=== PATIENT | female | born 1965 | race Caucasian/White ===

== ENCOUNTER 2016-09-16 06:38 | Inpatient (IN) | payer MEDICAID ==
[~2016-09-16] VITALS: Ht 157.5 cm; Wt 101.7 kg
--- NOTE | 2016-09-16 07:04 | NUR ---
PATIENT SEEN WITH COMPLAINT OF VAVINAL BLEEDING SINCE JULY. FAMILY REPORTS PATIENT HAS A RASH. DR BLACKMON AT THE BEDSIDE. PELVIC EXAM WAS DONE.
--- NOTE | 2016-09-16 07:18 | NUR ---
REPORT ENDORSED TO
--- NOTE | 2016-09-16 07:20 | NUR ---
RECEIVED REPORT FROM SHERRY RUIZ AND WILL ASSUME CARE OF PT. PT REPORTING VAGINAL BLEEDING SINCE JULY 2016. REPORTING HX OF UTERINE FIBROIDS AND BIOPSY COMPLETED IN JULY. INTERMITTENT VAGINAL BLEEDING USING APPX 1 PAD EVERY 20 MINTUES FOR THE PAST FEW WEEKS AND DIZZINESS WITH ADEN FOR THE PAST 8 DAYS. [place] [facility] [place] UTI WAS DX AND KEFLEX GIVEN HOWEVER SYMTPOMS NOT IMPROVEMENT. PT STATED BIOPSY RESULTS ARE SUPPOSED TO BE GIVEN TO HER ON September. PT IS A/O X4. BREATHING EVEN AND UNLABORED. LOWER ABD CRAMPING, WITH BURNING AND ITCHINESS IN THE VAGINAL AREA. PENDING PLAN OF CARE.
[2016-09-16 07:39] LABS: BASOPHIL % 0.3 % (0-2); PLATELET COUNT 273 x10^3mcL (130-400); RED CELL DISTRIBUTION WIDTH 14.3 % (11.5-14.5)
[2016-09-16 07:47] LABS: CALCIUM 8.2 mg/dL (8.5-10.1); CHLORIDE SERUM 104 mmol/L (98-107); CREATININE SERUM 0.5 mg/dL (0.6-1.0); GFR1 > 60 mL/min; GLUCOSE SERUM 170 mg/dL (74-106); POTASSIUM SERUM 3.8 mmol/L (3.5-5.1); SODIUM SERUM 138 mmol/L (136-145)
--- NOTE | 2016-09-16 08:03 | NUR ---
BIALTERAL SWAB OF THE NARES COMPLETED.
[2016-09-16] MEDS ORDERED: NATURAL IRON65 MG PO (08:04)
[2016-09-16] MEDS ORDERED: KEFLEX500 M1 PO (08:05)
--- NOTE | 2016-09-16 08:30 | NUR ---
REPORT GIVEN TO GABINO RUIZ TO ASSUME CARE OF PT IN BED 239B
--- NOTE | 2016-09-16 09:03 | NUR ---
RESUMED CARE FOR Pt. FROM ED. Pt. AAOX4. RESPIRATIONS EVEN AND UNLABORED LUNG SOUNDS CLEAR UPON AUSCULTATION. C/O GENERALIZED WEAKNESS AND VAGINAL PAIN THAT INCREASES WITH URINATION 8/10 SCALE AT THIS TIME. IV AT RIGHT AC PATENT AND INTACT RESUMED IVF NS AT 75/ML/HR. PLACED Pt. ON TELE 6 NSR, DENIES CHEST PAIN/PRESSURE. ABD ROUND/SOFT ACTIVE BOWEL SOUNDS X 4 QUADRANTS Pt. REPORTED HAVING DIARRHEA THIS AM. SMALL AMOUNT OF VAGINAL BLEEDING NOTED. LEFT LOWER BUTTOCK WITH OPEN AREA MEMORIAL MARKER DESIGNER, NO DRAINAGE/REDNESS/SWELLING NOTED AT THIS TIME. ORIENTED
[2016-09-16 09:05] LABS: IRON 37 ug/dL (50-170); MAGNESIUM 1.7 mg/dL (1.8-2.4); PHOSPHOROUS 3.5 mg/dL (2.5-4.9); TOTAL IRON BINDING CAPACITY 339 ug/dL (250-450)
[2016-09-16 09:09] VITALS: BP 146/75
[2016-09-16 09:16] VITALS: BP 146/75
[2016-09-16 09:34] LABS: RED BLOOD CELLS 2.72 M/mm3 (4.10-5.10)
[2016-09-16 12:29] VITALS: BP 129/73
[2016-09-16 13:00] VITALS: BP 123/50
[2016-09-16 13:30] LABS: AMYLASE 34 U/L (25-115); LIPASE 129 IU/L (73-393)
[2016-09-16 13:42] LABS: FREE T4 0.97 ng/dL (0.76-1.46); FREE THYROXINE INDEX 2.5 ug/dL (1.4-4.5); T4(THYROXINE) 7.2 ug/dL (4.7-13.3)
[2016-09-16 13:50] LABS: T3 TOTAL 1.34 ng/mL
--- NOTE | 2016-09-16 15:37 | NUR ---
Pt. C/O HEADACHE AND NECK PAIN 8/10 SCALE, NORCO GIVEN WILL CONTINUE TO MONITOR.
[2016-09-16 16:29] LABS: UA SPECIFIC GRAVITY 1.025 (1.005-1.035); microscopic required? YES
[2016-09-16 16:31] LABS: urine erythrocyte 3+ (NEGATIVE)
--- NOTE | 2016-09-16 17:30 | NUR ---
Pt. DENIES PAIN/DISCOMFORT POST NORCO.
--- NOTE | 2016-09-16 18:48 | NUR ---
Pt. AAOX4. RESPIRATIONS EVEN AND UNLABORED. DENIES PAIN/DISCOMFORT AT THIS TIME. NO DISTRESS NOTED. TELE IN PLACE. IVF NS RUNNING TO IV AT RIGHT AC PATENT AND INTACT. SCANT VAGINAL RED DRAINAGE NOTED. LEFT LOWER BUTTOCK VOCATIONAL CASE MANAGER NO DRAINAGE NOTED. BED LOW/LOCKED. NO REACTION NOTED FROM ANTIBIOTICS. CALL LIGHT IN REACH.
--- NOTE | 2016-09-16 19:30 | NUR ---
RECEIVED REPORT FROM JOSEPH JHA. PT RESTING IN BED COMFORTBALY IN NO ACUTE DISTRESS OR DISCOMFORT. AAOX4. DENIES OF ADEN/DIZZINESS AT THIS TIME. ON TELE MON 6 SR. DENIES OF ANY CHEST DISCOMFORT. PER PULSES STRONG. NEG ON EDEMA. SCDS APPLIED. IN RA WITH SAT OF 95%. BREATHING EVENLY AND UNLABORED. NO SOB NOTED. BS ACTIVE. LAST BM 09/16/16 DIARRHEA PER PT. VOIDS FREELY WITH PRESSURE PAIN. GEN WEAKNESS. AMBULATES STEADILY. PT HAS L BUTTOCK SORE ON L INNER CHEEK. NO DRAINAGE NOTED AND FRONT END UI DEVELOPER. DENIES OF ANY PAIN AT THIS TIME. IV ON RAC PATENT. SAFETY MEASURES ENSURED. INSTRUCTED PT TO CALL FOR ANY NEEDS/ASSISTANCE. CALL LIGHT WITHIN REACH. WILL CONT TO MONITOR PT. PT AWARE TO TAKE NOTHING BY MOUTH AT THIS TIME.
[2016-09-16 20:39] VITALS: BP 148/75
[2016-09-17 05:29] VITALS: BP 133/66
--- NOTE | 2016-09-17 05:30 | NUR ---
PT SLEPT COMFORTABLY THROUGH OUT THE NIGHT. WAS IN NO ACUTE DISTRESS OR DISCOFORT. DENIES OF ANY EXCESSIVE VAGINAL BLEED. SAFETY MEASURES WERE ENSURED. CALL LIGHT WITHIN REACH.
[2016-09-17 06:28] LABS: BASOPHIL % 0.4 % (0-2); PLATELET COUNT 252 x10^3mcL (130-400)
[2016-09-17 06:42] LABS: RED CELL DISTRIBUTION WIDTH 14.8 % (11.5-14.5)
[2016-09-17 06:51] LABS: CALCIUM 7.8 mg/dL (8.5-10.1); CARBON DIOXIDE 25.5 mmol/L (21-32); CHLORIDE SERUM 108 mmol/L (98-107); CREATININE SERUM 0.6 mg/dL (0.6-1.0); GFR1 > 60 mL/min; GLUCOSE SERUM 157 mg/dL (74-106); SODIUM SERUM 141 mmol/L (136-145)
[2016-09-17 07:06] LABS: CHOLESTEROL/HDL RATIO 3.3
--- NOTE | 2016-09-17 07:15 | NUR ---
RECEIVED Pt. AAOX4. RESPIRATIONS EVEN AND UNLABORED. DENIES PAIN/DISCOMFORT AT THIS TIME. NO DISTRESS NOTED. Pt. REPORTED HAVING SCANT AMOUNT OF BLEEDING ONLY DURING URINATION. NO VAGINAL BLEEDING NOTED AT THIS TIME. TELE IN PLACE HR 70. IVF RUNNING TO IV AT RIGHT AC PATENT AND INTACT. BED LOW/LOCKED. CALL LIGHT IN REACH.
--- NOTE | 2016-09-17 08:20 | NUR ---
MADE ROUNDS WITH DR. BULLOCK AND MEDICINE TEAM, Pt. TO STAY AND CONTINUE ANTIBIOTICS. Pt. AGREED WITH PLAN OF CARE.
[2016-09-17 09:52] VITALS: BP 145/76
[2016-09-17 13:15] VITALS: BP 128/73
--- NOTE | 2016-09-17 17:20 | NUR ---
Pt. C/O NUMBNESS AT RUE, SLIGHT SWELLING NOTED. IV AT RIGHT AC PATENT AND INTACT. NS RUNNING AT 140 ML/HR. DR. BERGMAN MADE AWARE.
--- NOTE | 2016-09-17 17:20 | NUR ---
Pt. C/O NUMBESS AT RUE, SLIGHT SWELLING NOTED. IV AT RIGHT AC PATENT AND INTACT. NS RUNNING AT 140 ML/HR, STOPPED IV INFUSION. DR. BROWN NOTIFIED.
[2016-09-17 17:31] VITALS: BP 127/70
--- NOTE | 2016-09-17 18:15 | NUR ---
Pt. C/O SEASONAL ALLERGIES DR. BROWN NOTIFIED.
--- NOTE | 2016-09-17 18:15 | NUR ---
Pt. AAOX4. RESPIRATIONS EVEN AND UNLABORED. DENIES PAIN AT THIS TIME. NO DISTRESS NOTED. IV AT RIGHT AC SALINE LOCKED. TELE IN PLACE. SWELLING STILL NOTED AT RUE. Pt. INSTRUCTED TO KEEP RUE ELEVATED AND VERBALIZED UNDERSTANDING. Pt. REPORTED HAVING SMALL AMOUNT OF BLOOD CLOTS IN URINE. BED LOW/LOCKED. CALL LIGHT IN REACH.
--- NOTE | 2016-09-17 18:32 | NUR ---
ATTEMPTED TO MEDICATE WITH BENADRYL PER EMAR FOR C/O SEASONAL ALLERGIES. Pt. REQUESTED TO GET BENADRYL LATER INSTEAD BECAUSE FAMILY AT BEDSIDE VISITING AT THIS TIME.
--- NOTE | 2016-09-17 20:03 | NUR ---
RECEIVED PT FROM AM NURSE IN NO ACUTE DISTRESS. LAYING IN BED COMFORTABLY. A/OX4. TELE #6 SR DENIES ANY CHEST PAIN OR DISCOMFORT. PULSES PALPABLE AND EVEN. NO EDEMA NOTED. LUNGS CTA ON RA. BREATHING EVEN AND UNLABORED. ABD SOFT AND ROUND. DENIES ABD PAIN. AMBULATORY. REPORTS MILD VAGINAL BLEEDING/SPOTTING AT THIS TIME. OPEN SORE TO L INNER BUTTOCK. IV INTACT AND PATENT TO RAC. SALINE LOCK AT THIS TIME BED IN LOWEST POSITION. CALL LIGHT INSTRUCTIONS REINFORCED. FAMILY AT BEDSIDE. WILL CONT TO MONITOR.
[2016-09-17 21:40] VITALS: BP 128/55
--- NOTE | 2016-09-17 22:15 | NUR ---
C/O SEASONAL ALLERGIES, BENADRYL ADMINISTERED AT THIS TIME PRESCRIBED. WILL CONTTO MONITOR.
--- NOTE | 2016-09-17 22:58 | NUR ---
C/O ANXIETY AFTER 0.5ML BENEDRYL ADMINISTRATION. DOCTOR MADE AWARE. WILL CONT TO MONITOR.
--- NOTE | 2016-09-18 00:02 | NUR ---
IV TO RAC INFILTRATED. DC'D AND STARTED NEW IV TO LFA. NO INFILTRATION. SALINE LOCKED. WILL CONT TO MONITOR.
--- NOTE | 2016-09-18 00:23 | NUR ---
RESTING IN BED WITH NO ACUTE DISTRESS. NO NEED FOR ATIVAN. PT STATES SHES LESS ANXIOUS. WILL CONT TO MONITOR.
--- NOTE | 2016-09-18 05:08 | NUR ---
SLEPT PERIODICALLY THROUGHOUT SHIFT.ALL NEEDS MET AND ATTENDED TO. REMAINS IN STABLE CONDITION. IV INTACT AND PATENT. BED IN LOWEST POSITION. CALL LIGHT WITHIN REACH. WILL CONT TO MONITOR AND ENDORSE ALL CARE TO ONCOMING NURSE.
[2016-09-18 05:59] VITALS: BP 125/55
[2016-09-18 06:57] LABS: CALCIUM 8.1 mg/dL (8.5-10.1); CARBON DIOXIDE 26.1 mmol/L (21-32); CHLORIDE SERUM 105 mmol/L (98-107); CREATININE SERUM 0.6 mg/dL (0.6-1.0); GFR1 > 60 mL/min; GLUCOSE SERUM 152 mg/dL (74-106); MAGNESIUM 1.7 mg/dL (1.8-2.4); PHOSPHOROUS 4.2 mg/dL (2.5-4.9); POTASSIUM SERUM 3.9 mmol/L (3.5-5.1); SODIUM SERUM 140 mmol/L (136-145)
[2016-09-18 06:59] LABS: BASOPHIL % 0.9 % (0-2); PLATELET COUNT 236 x10^3mcL (130-400)
[2016-09-18 07:03] LABS: RED CELL DISTRIBUTION WIDTH 14.6 % (11.5-14.5)
--- NOTE | 2016-09-18 07:15 | NUR ---
RECEIVED Pt. EYES CLOSED APPEARS TO BE SLEEPING. RESPIRATIONS EVEN AND UNLABORED. NO FACIAL GRIMACING/MOANING NOTED. NO DISTRESS NOTED. IV AT LEFT FOREARM SALINE LOCKED. TELE IN PLACE HR 66. BED LOW/LOCKED. CALL LIGHT IN REACH.
--- NOTE | 2016-09-18 08:15 | NUR ---
MADE ROUNDS WITH DR. BULLOCK AND MEDICINE TEAM, Pt. POSSIBLE DISCHARGE TODAY AND AGREED WITH PLAN OF CARE.
[2016-09-18 09:02] VITALS: BP 125/63
--- NOTE | 2016-09-18 09:15 | NUR ---
DR. BROWN NOTIFIED Pt. MAGNESIUM LEVEL AT 1.7
--- NOTE | 2016-09-18 10:55 | NUR ---
Pt. REPORTED NO MORE BLOOD CLOTS IN URINE, DENIES DYSURIA.
[2016-09-18 13:12] VITALS: BP 116/60
[2016-09-18] MEDS ORDERED: ZES10 PO (16:58)
[2016-09-18] MEDS ORDERED: VITC PO (16:59)
[2016-09-18] MEDS ORDERED: ZOFRAN ODT4 MG SL (16:59)
[2016-09-18] MEDS ORDERED: THERA TABS1 TAB PO (16:59)
[2016-09-18] MEDS ORDERED: GLU500 PO (16:59)
[2016-09-18] MEDS ORDERED: MOT600 PO (17:00)
[2016-09-18 17:23] VITALS: BP 116/60
--- NOTE | 2016-09-18 17:53 | NUR ---
Pt. AAOX4. RESPIRATIONS EVEN AND UNLABORED. DENIES PAIN/DISCOMFORT AT THIS TIME. DENIES DYSURIA, DENIES HEMATURIA. NO DISTRESS NOTED. ALL RX AND DISCHARGE INSTRUCTIONS EXPLAINED TO Pt. AND VERBALIZED UNDERSTANDING. IV AT LEFT FOREARM REMOVED WITH CATH INTACT. TELE 6 RETURNED. LEFT LOWER BUTTOCK DWAYNE PHOTO TAKEN. Pt. LEFT WITH ALL BELONGINGS.
== END 2016-09-18 18:37 | disposition home or self-care (01) | DRG 532 ==
LOC: EDBD 06:38 → ED 06:38 → DU 07:55
PROVIDERS: Emergency Medicine; Family Medicine; ADMIT Family Medicine
DX: N93.9 Abnormal uterine and vaginal bleeding, unspecified (principal); N17.0 Acute kidney failure with tubular necrosis; E11.65 Type 2 diabetes mellitus with hyperglycemia; D62 Acute posthemorrhagic anemia; N39.0 Urinary tract infection, site not specified; D68.69 Other thrombophilia; Z68.41 Body mass index [BMI] 40.0-44.9, adult; D25.9 Leiomyoma of uterus, unspecified; E83.42 Hypomagnesemia; R10.2 Pelvic and perineal pain
CPT/HCPCS: 82962; 83880; 84439; J0696; J1200; J3475; J3490; J7030; Q0092; Q0163

== ENCOUNTER 2017-05-11 19:09 | Inpatient (IN) | payer MEDICAID ==
[~2017-05-11] VITALS: Ht 160 cm; Wt 93.5 kg
[~2017-05-11 19:09] MED LIST: GLU500 PO; KEFLEX500 M1 PO; MOT600 PO; NATURAL IRON65 MG PO; THERA TABS1 TAB PO; VITC PO; ZES10 PO; ZOFRAN ODT4 MG SL
[2017-05-11 19:50] VITALS: Ht 160 cm; Wt 93.5 kg
[2017-05-11 20:50] LABS: CALCIUM 8.3 mg/dL (8.5-10.1); CARBON DIOXIDE 23.2 mmol/L (21-32); CHLORIDE SERUM 101 mmol/L (98-107); CREATININE SERUM 0.8 mg/dL (0.6-1.0); GFR1 > 60 mL/min; GLUCOSE SERUM 446 mg/dL (74-106); POTASSIUM SERUM 3.9 mmol/L (3.5-5.1); SODIUM SERUM 135 mmol/L (136-145)
[2017-05-11 20:52] LABS: UA SPECIFIC GRAVITY <=1.005 (1.005-1.035); microscopic required? YES; urine erythrocyte 3+ (NEGATIVE)
[2017-05-11 20:55] LABS: ALBUMIN 3.3 g/dL (3.4-5.0); ALKALINE PHOSPHATASE 65 U/L (46-116); ALT/SGPT 19 U/L (14-59); AST/SGOT 8 U/L (15-37); BILIRUBIN TOTAL 0.73 mg/dL (0.20-1.00); TOTAL PROTEIN, SERUM 7.3 g/dL (6.4-8.2)
[2017-05-11 21:18] LABS: BASOPHIL % 0.1 % (0-2); PLATELET COUNT 329 x10^3mcL (130-400)
[2017-05-11 21:20] LABS: RED CELL DISTRIBUTION WIDTH 20.3 % (11.5-14.5)
[2017-05-11 21:32] LABS: rbc morphology (normal/abnorm) ABNORMAL (NORMAL)
[2017-05-11 21:35] LABS: ovalocyte/elliptocyte 1+
[2017-05-11] MEDS ORDERED: AYGESTIN5 MG PO (22:07)
[2017-05-11 22:09] LABS: AMPHETAMINE QUAL UR NONE DETECTED (NEG <=1000)
[2017-05-11 22:14] LABS: T3 TOTAL 1.06 ng/mL
[2017-05-11 22:16] LABS: FREE T4 1.08 ng/dL (0.76-1.46); FREE THYROXINE INDEX 2.7 ug/dL (1.4-4.5); T4(THYROXINE) 6.9 ug/dL (4.7-13.3)
[2017-05-11 22:21] LABS: MAGNESIUM 1.7 mg/dL (1.8-2.4); PHOSPHOROUS 3.4 mg/dL (2.5-4.9)
[2017-05-11 22:25] LABS: CHOLESTEROL/HDL RATIO 4.5
[2017-05-11 22:32] VITALS: BP 153/64
[2017-05-12] VITALS (8 sets, daily range): BP systolic 134–150; BP diastolic 63–76
[2017-05-12 01:13] LABS: RED BLOOD CELLS 2.95 M/mm3 (4.10-5.10); TOTAL IRON BINDING CAPACITY 373 ug/dL (250-450)
[2017-05-12 01:18] LABS: IRON 8 ug/dL (50-170)
[2017-05-12 07:38] LABS: CALCIUM 7.6 mg/dL (8.5-10.1); CARBON DIOXIDE 24.4 mmol/L (21-32); CHLORIDE SERUM 106 mmol/L (98-107); CREATININE SERUM 0.6 mg/dL (0.6-1.0); GFR1 > 60 mL/min; GLUCOSE SERUM 190 mg/dL (74-106); POTASSIUM SERUM 3.5 mmol/L (3.5-5.1); SODIUM SERUM 139 mmol/L (136-145)
[2017-05-12 08:20] LABS: PLATELET COUNT 299 x10^3mcL (130-400)
[2017-05-12 08:29] LABS: RED CELL DISTRIBUTION WIDTH 22.9 % (11.5-14.5)
[2017-05-12 10:37] LABS: BAND NEUTROPHIL 0 % (0-10); BASOPHIL 0 % (0-2); MONOCYTE 2 % (0-7); SEGMENTED NEUTROPHILS 66 % (37-75); rbc morphology (normal/abnorm) ABNORMAL (NORMAL)
[2017-05-12 10:39] LABS: ovalocyte/elliptocyte 1+
[2017-05-13 06:16] VITALS: BP 117/44
[2017-05-13 07:44] LABS: BASOPHIL % 0.4 % (0-2); PLATELET COUNT 238 x10^3mcL (130-400)
[2017-05-13 08:11] LABS: CALCIUM 7.7 mg/dL (8.5-10.1); CARBON DIOXIDE 21.5 mmol/L (21-32); CHLORIDE SERUM 104 mmol/L (98-107); CREATININE SERUM 0.5 mg/dL (0.6-1.0); GFR1 > 60 mL/min; GLUCOSE SERUM 167 mg/dL (74-106); MAGNESIUM 1.9 mg/dL (1.8-2.4); PHOSPHOROUS 3.2 mg/dL (2.5-4.9); POTASSIUM SERUM 3.8 mmol/L (3.5-5.1); SODIUM SERUM 136 mmol/L (136-145)
[2017-05-13 09:15] LABS: RED CELL DISTRIBUTION WIDTH 23.2 % (11.5-14.5)
[2017-05-13 09:38] VITALS: BP 132/67
[2017-05-13 12:05] VITALS: BP 132/67
[2017-05-13 13:59] LABS: rbc morphology (normal/abnorm) ABNORMAL (NORMAL)
[2017-05-13 14:01] LABS: ovalocyte/elliptocyte 1+
[2017-05-13 14:02] LABS: tear drop cell (dacryocyte) 1+
[2017-05-13] MEDS ORDERED: METFORMIN HCL1000 MG PO (16:39)
[2017-05-13] MEDS ORDERED: LANTUS SOLOS100 U/M1 SQ (16:41)
[2017-05-13] MEDS ORDERED: NEU300 PO (16:42)
[2017-05-13] MEDS ORDERED: HURS MM (17:14)
[2017-05-13] MEDS ORDERED: PROV5 PO (17:23)
== END 2017-05-13 19:06 | disposition home or self-care (01) | DRG 420 ==
LOC: ED 19:09 → DU 20:53 → EDBEDREQ 20:56 → DU 21:14
PROVIDERS: Emergency Medicine; Family Medicine
DX: E11.65 Type 2 diabetes mellitus with hyperglycemia (principal); N17.0 Acute kidney failure with tubular necrosis; E44.0 Moderate protein-calorie malnutrition; D68.69 Other thrombophilia; E83.42 Hypomagnesemia; E87.1 Hypo-osmolality and hyponatremia; D50.9 Iron deficiency anemia, unspecified; N92.1 Excessive and frequent menstruation with irregular cycle; D25.9 Leiomyoma of uterus, unspecified; I10 Essential (primary) hypertension; E66.9 Obesity, unspecified; Z68.35 Body mass index [BMI] 35.0-35.9, adult
CPT/HCPCS: 36600; 82962; 83880; 84439; G0378; J2916; J3475; J7030; J7050; P9016; Q0092; Q0163

== ENCOUNTER 2018-12-05 09:37 | Emergency (ER) | payer MEDICAID ==
[~2018-12-05] VITALS: Ht 160 cm; Wt 93.0 kg
[~2018-12-05 09:37] MED LIST changes: +AYGESTIN5 MG PO; +HURS MM; +LANTUS SOLOS100 U/M1 SQ; +METFORMIN HCL1000 MG PO; +NEU300 PO; +PROV5 PO
[2018-12-05 09:45] VITALS: Ht 160 cm; Wt 93.0 kg
[2018-12-05 11:20] LABS: BASOPHIL % 0.3 % (0-2); PLATELET COUNT 223 x10^3mcL (130-400)
[2018-12-05 11:22] LABS: RED CELL DISTRIBUTION WIDTH 16.5 % (11.5-14.5)
[2018-12-05 11:28] LABS: CALCIUM 8.5 mg/dL (8.5-10.1); CARBON DIOXIDE 24.7 mmol/L (21-32); CHLORIDE SERUM 106 mmol/L (98-107); CREATININE SERUM 0.6 mg/dL (0.6-1.0); GFR1 > 60 mL/min; GLUCOSE SERUM 134 mg/dL (74-106); POTASSIUM SERUM 3.5 mmol/L (3.5-5.1); SODIUM SERUM 139 mmol/L (136-145)
[2018-12-05 11:33] LABS: ALBUMIN 3.4 g/dL (3.4-5.0); ALKALINE PHOSPHATASE 71 U/L (46-116); ALT/SGPT 18 U/L (14-59); AST/SGOT 5 U/L (15-37); BILIRUBIN TOTAL 1.35 mg/dL (0.20-1.00); TOTAL PROTEIN, SERUM 7.3 g/dL (6.4-8.2)
[2018-12-05 13:32] VITALS: BP 141/69
== END 2018-12-05 13:32 | disposition home or self-care (01) ==
LOC: ED 09:37
PROVIDERS: Specialist
DX: E86.0 Dehydration (principal); T67.5XXA Heat exhaustion, unspecified, initial encounter; E11.9 Type 2 diabetes mellitus without complications; Z98.890 Other specified postprocedural states; Z90.49 Acquired absence of other specified parts of digestive tract; X58.XXXA Exposure to other specified factors, initial encounter; Y93.89 Activity, other specified; Y92.89 Other specified places as the place of occurrence of the external cause; Y99.8 Other external cause status
CPT/HCPCS: J1885; J2405; J7030

== ENCOUNTER 2018-12-07 08:31 | Inpatient (IN) | payer MEDICAID ==
[~2018-12-07] VITALS: Ht 157.5 cm; Wt 91.6 kg
[2018-12-07 08:41] VITALS: Ht 157.5 cm; Wt 91.6 kg
--- NOTE | 2018-12-07 08:51 | NUR ---
PT AMBULATING TO RESTROOM WITH DAUGTHER, TO PROVIDE CLEAN CATCH URINE SAMPLE.
--- NOTE | 2018-12-07 08:55 | NUR ---
PT STS SHE WAS UNABLE TO PROVIDE URINE SAMPLE, INSTRUCTED TO ATTEMPT NEEDED, WILL CONTINUE TO MONITOR, DAUGHTER AT BEDSIDE. PT PLACED ON FULL CM.IN POSITION OF COMFORT. CALL LIGHT WITHIN REACH.
--- NOTE | 2018-12-07 09:25 | NUR ---
PT AND MESERET INFORMED SHE NEEDS TO PROVIDE STOOL SAMPLE, EDUCATED ON HOW TO PROVIDE STOOL SAMPLE, COLLECTING SUPPLIES AND CONTAINER GIVEN, VERBALIZED UNDERSTANDING OF TEACHING.
--- NOTE | 2018-12-07 09:31 | NUR ---
PT TAKEN TO CT.
[2018-12-07 10:24] LABS: CALCIUM 8.2 mg/dL (8.5-10.1); CARBON DIOXIDE 22.5 mmol/L (21-32); CHLORIDE SERUM 104 mmol/L (98-107); CREATININE SERUM 0.6 mg/dL (0.6-1.0); GFR1 > 60 mL/min; GLUCOSE SERUM 146 mg/dL (74-106); POTASSIUM SERUM 3.6 mmol/L (3.5-5.1); SODIUM SERUM 138 mmol/L (136-145)
[2018-12-07 10:28] LABS: ALKALINE PHOSPHATASE 63 U/L (46-116); ALT/SGPT 29 U/L (14-59); AST/SGOT 21 U/L (15-37); BILIRUBIN TOTAL 0.92 mg/dL (0.20-1.00); LIPASE 73 IU/L (73-393); TOTAL PROTEIN, SERUM 7.1 g/dL (6.4-8.2)
[2018-12-07 10:30] LABS: BASOPHIL % 0.3 % (0-2); PLATELET COUNT 164 x10^3mcL (130-400)
[2018-12-07 10:31] LABS: RED CELL DISTRIBUTION WIDTH 16.8 % (11.5-14.5)
--- NOTE | 2018-12-07 11:19 | NUR ---
PT MEDICATED PER EMAR.
[2018-12-07 11:43] LABS: UA SPECIFIC GRAVITY 1.025 (1.005-1.035); microscopic required? YES; urine erythrocyte 2+ (NEGATIVE)
--- NOTE | 2018-12-07 12:30 | NUR ---
PT ASSISTED TO RESTROOM, PT TAKEN TO RESTROOM VIA ED WHEELCHAIR, TOLERATED WELL, PLACED ON FULL CM, NAD NOTED.
--- NOTE | 2018-12-07 13:44 | NUR ---
PT GIVEN MEAL TRAY, ATE 100% OF FOOD AND APPLE JUICE. ON FULL CM, NAD NOTED, DAUGHTER AT BEDSIDE.
--- NOTE | 2018-12-07 14:50 | NUR ---
X2 ATTEMPTS WERE MADE TO GIVE REPORT TO AKIRA, WITH NO ANSWER.
--- NOTE | 2018-12-07 15:08 | NUR ---
REPORT GIVEN TO JOSEPH CHAMPION TO ASSUME CARE.
--- NOTE | 2018-12-07 15:41 | NUR ---
PT TRANSPORTED TO [facility] UNIT BY EMT ROSAS DUDLEY NOTED, RESPS E/U, SPEECH IS CLEAR.
--- NOTE | 2018-12-07 15:42 | NUR ---
LAB AT BEDSIDE.
--- NOTE | 2018-12-07 15:45 | NUR ---
MYRA ARRIVED FROM ED VIA GURNEY ACCOMPANIED BY ADEOLA AND ROB FLOYD. PATIENT ABLE TO AMBULATE TO BED WIHTOUT ASSISTANCE, SLOW GAIT BUT STEADY. DENEIS PAIN AT THIS TIME. ORIENTED TO ROOM AND CALL LIGHT SYSTEM. CALL LIGHT WITHIN REACH
[2018-12-07 16:00] VITALS: BP 145/73
--- NOTE | 2018-12-07 16:03 | NUR ---
RECEIVED PT FROM ED VIA JUNG. ORIENTED PT TO ROOM AND SURROUNDINGS. IV NOTED TO LAC PATENT AND INTACT. INSTRUCTED PT ON THE USE OF CALL LIGHT FOR ASSISTANCE. ENDORSED PT TO PRIMARY NURSE AKIRA
--- NOTE | 2018-12-07 16:26 | NUR ---
STARTED FLUIDS, ANSWERED QUESTIONS PATIENT AND FAMILY HAD.
--- NOTE | 2018-12-07 17:04 | NUR ---
ADMINISTERED MEDICATION PER MAR. BG RESULT WAS 122. NO INSULIN COVERAGE NEEDED. CALL LIGHT WITHIN REACH OF PATIENT. NO ADDDTIONAL COMPLAINTS AT THIS TIME
--- NOTE | 2018-12-07 19:20 | NUR ---
RECIEVED PT IN NO ACUTE DISTRESS. AOX4. MED SURG. BREATHING E/U. C/O CHILLS, L FLANK, AND LUQ PAIN. TEMP CHECK WAS 101.3. COOLING MEASURES INITIATED. WILL MEDICATE PER EMAR. IV TO LAC, PATENT AND INFUSING. BED IN LOWEST POSITION, 2 SIDE RAILS UP, CALL LIGHT IN REACH. INSTRUCTED TO CALL FOR ASSISTANCE. DAUGHTER IS AT BEDSIDE.
[2018-12-07 22:16] VITALS: BP 150/63
--- NOTE | 2018-12-07 22:18 | NUR ---
TEMP RECHECK 102.3. ADMINISTERED TYLENOL PER EMAR. COOLING MEASURES CONTINUED. PT FOUND WITH MULTIPLE BLANKETS ON, REMOVED AND EDUCATED ON IMPORTANCE OF MAINTAINING COOLING MEASURES. WILL CONTINUE TO MONITOR.
--- NOTE | 2018-12-08 01:11 | NUR ---
TEMP RECHECK 99.8. COOLING MEASURES CONTINUED. WILL CONTINUE TO MONITOR.
[2018-12-08 05:49] VITALS: BP 143/71
--- NOTE | 2018-12-08 06:26 | NUR ---
AFEBRILE THIS AM. DENIES LUQ AND L FLANK PAIN. NO ACUTE DISTRESS NOTED. WILL ENDORSE TO ONCOMING RN.
[2018-12-08 06:36] LABS: BASOPHIL % 0.4 % (0-2); PLATELET COUNT 156 x10^3mcL (130-400)
[2018-12-08 06:45] LABS: RED CELL DISTRIBUTION WIDTH 16.7 % (11.5-14.5)
[2018-12-08 06:52] LABS: CALCIUM 8.2 mg/dL (8.5-10.1); CARBON DIOXIDE 24.7 mmol/L (21-32); CHLORIDE SERUM 105 mmol/L (98-107); CREATININE SERUM 0.6 mg/dL (0.6-1.0); GFR1 > 60 mL/min; GLUCOSE SERUM 120 mg/dL (74-106); POTASSIUM SERUM 3.8 mmol/L (3.5-5.1); SODIUM SERUM 139 mmol/L (136-145)
--- NOTE | 2018-12-08 07:44 | NUR ---
A+OX4, NO RESPIRATORY DISTRESS, MEDSURG, PULSES MODERATE AND EQUAL JEANINE, NO EDEMA NOTED, LUNG SOUNDS CTA, TOLERATING RA, BOWEL SOUNDS ACTIVE, VOIDS FREELY, GENERALIZED WEAKNESS, SKIN INTACT, IV IN LAC WITH NS @ 50 ML/HR, SITE WNL, CALL LIGHT WITHIN REACH.
[2018-12-08 08:48] VITALS: BP 145/78
--- NOTE | 2018-12-08 09:16 | NUR ---
PT RESTING IN BED, COMPLAINING OF 7/10 L FLANK PAIN, TORADOL IVP GIVEN, NO RESPRIATORY DISTRESS NOTED, CALL LIGHT WITHIN REACH.
--- NOTE | 2018-12-08 12:13 | NUR ---
PT RESTING IN BED, NO RESPIRATORY DISTRESS NOTED, DENIES PAIN, CALL LIGHT WITHIN REACH.
--- NOTE | 2018-12-08 14:25 | NUR ---
PT RESTING IN BED, NO RESPIRATORY DISTRESS NOTED, DENIES PAIN, FAMILY AT BEDSIDE, CALL LIGHT WITHIN REACH.
--- NOTE | 2018-12-08 15:43 | NUR ---
PT RESTING IN BED, NO RESPIRATORY DISTRESS NOTED, DENIES PAIN, FAMILY AT BEDSIDE, CALL LIGHT WITHIN REACH.
[2018-12-08 16:23] VITALS: BP 132/69
--- NOTE | 2018-12-08 17:21 | NUR ---
PT SITTING AT EDGE OF BED, STATES SHE HAS BEEN TRYING TO HAVE BM ALL DAY BUT FEELS SHE IS CONSTIPATED, PT REQUESTING LAXATIVE, MILK OF MAG GIVEN, NO RESPRIATORY DISTRESS NOTED, CALL LIGHT WITHIN REACH.
--- NOTE | 2018-12-08 18:53 | NUR ---
PT RESTING IN BED, APPEARS TO BE SLEEPING, NO RESPRIATORY DISTRESS NOTED, CALL LIGHT WITHIN REACH.
--- NOTE | 2018-12-08 19:14 | NUR ---
ENDORSED CARE TO COTY RUIZ.
--- NOTE | 2018-12-08 19:30 | NUR ---
PT SEEN, ASLEEP BUT EASILY AROUSABLE, ALERT AND ORIENTED, DENIES HEADACHE OR DIZZINESS, BREATHING EVEN AND UNLBAORED, NO SOB, LUNG SOUNDS CLEAR, ON ROOM AIR WITH NO RESP DISTRESS NOTED, IVF INFUSING WELL, PULSES PALPABLE, NO EDEMA NOTED, MILD GENERALIZED WEAKNESS, ABD SOFT AND ROUND WITH ACTIVE BS, NO BM AT THIS TIME, C/O OF LEFT FLANK PAIN AT TIMES, C/O OF CONSTIPATION NOW NO DIARRHEA TODAY, DENIES ANY PROBLEM WITH VOIDING, NO DISTRESS NOTED, WILL KEEP TO MONITOR.
[2018-12-08 20:23] VITALS: BP 126/87
--- NOTE | 2018-12-09 05:32 | NUR ---
PT ASLEEP BUT EASILY AROUSABLE, SLEPT ON AND OFF WHOLE NIGHT, MORNING BLOOD SUGAR: 138MG/DL WITH NO RISS, PT STILL WITH NO BM AFTER LACTULOS PO, MOM 30ML PO X 1 THIS MORNING, NO FEVER SINCE BEGINNING OF SHIFT, NO DISTRESS NOTED, WILL KEEP TO MONITOR.
[2018-12-09 05:55] VITALS: BP 121/76
[2018-12-09 06:16] LABS: CALCIUM 8.3 mg/dL (8.5-10.1); CARBON DIOXIDE 23.8 mmol/L (21-32); CHLORIDE SERUM 105 mmol/L (98-107); CREATININE SERUM 0.6 mg/dL (0.6-1.0); GFR1 > 60 mL/min; GLUCOSE SERUM 145 mg/dL (74-106); POTASSIUM SERUM 3.9 mmol/L (3.5-5.1); SODIUM SERUM 139 mmol/L (136-145)
[2018-12-09 06:46] LABS: BASOPHIL % 0.4 % (0-2); PLATELET COUNT 158 x10^3mcL (130-400)
--- NOTE | 2018-12-09 07:12 | NUR ---
BEDSIDE HANDOFF REPORT DONE WITH WALT-RN, ALL QIESTIONS ANSWERED AND CONCERNS ADDRESSED.
--- NOTE | 2018-12-09 08:03 | NUR ---
A+OX4, NO RESPRIATORY DISTRESS NOTED, MEDSURG, PULSES MODERATE AND EQUAL JEANINE, NO EDEMA NOTED, LUNG SOUNDS CTA, TOELRATING RA, BOWEL SOUNDS ACTIVE, PT COMPLAINING OF CONSTIPATION, VOIDING FREELY, GENERALIZED WEAKNESS, SKIN INTACT, IV IN LAC WITH NS @ 50 ML/HR, SITE WNL.
[2018-12-09 09:06] VITALS: BP 122/56
--- NOTE | 2018-12-09 09:12 | NUR ---
PT RESTING IN BED, NO RESPIRATORY DISTRESS NOTED, DENIES PAIN, PT STATES SHE IS STILL CONSTIPATED AND CANNOT HAVE BM, WILL NOTIFY HARLEY INSTANT POTATO PROCESSING SUPERVISOR, CALL LIGHT WITHIN REACH.
--- NOTE | 2018-12-09 11:36 | NUR ---
PT RESTING IN BED, NO RESPIRATORY DISTRESS NOTED, DENIES PAIN, CALL LIGHT WITHIN REACH. PER HARLEY OKAY FOR PT TO SHOWER. PT GIVEN SHOWER SUPPLIES AND STATES SHE DOES NOT NEED ASSISTANCE.
--- NOTE | 2018-12-09 14:26 | NUR ---
CALLED AND SPOKE TO MARGARITA(N.P.) AND MADE HER AWARE OF URINE CULTURE RESULT, NO FURTHER ORDER RECEIVED. WALT RN ASSIGNED TO THIS PT MADE AWARE OF ABOVE.
--- NOTE | 2018-12-09 14:33 | NUR ---
PT STATES SHE HAD A SMALL BM AND THAT SHE IS READY TO GO HOME, NO RESPRIATORY DISTRESS NOTED, DENIES PAIN, CALL LIGHT WITHIN REACH.
[2018-12-09 16:12] VITALS: BP 152/83
--- NOTE | 2018-12-09 16:49 | NUR ---
PT RESTING IN BED, NO RESPIRATORY DSITRESS NOTED, DENIES PAIN, DENIES NAUSEA, PT NOTIFIED THAT PHOTOGRAPHY SALES ASSOCIATE WOULD LIKE HER TO STAY ONE MORE NIGHT. CALL LIGHT WITHIN REACH.
--- NOTE | 2018-12-09 19:22 | NUR ---
PT STATES SHE STILL FEELD CONSTIPATED AND REQUESTING SOMETHING ELSE TO HELP HER HAVE BM. HARLEY COLOR LABORATORY TECHNICIAN NOTIFIED AND TELEPHONE ORDERED DULCOLAX SUPP 10 MG ONCE. DULCOLAX SUPP GIVEN RECTALLY. NO RESPRIATORY DISTRESS NOTED, CALL LIGHT WITHIN REACH.
--- NOTE | 2018-12-09 19:23 | NUR ---
ENDORSED CARE TO COTY RUIZ.
--- NOTE | 2018-12-09 19:37 | NUR ---
PT SEEN, RESTING IN BED, ALERT AND ORIENTED X 4 AND VERY VERBALLY RESPONSIVE, MOSTLY MALTESE SPEAKING, DENIES HEADACHE OR DIZZINESS, BREATHING EVEN AND UNLBAORED, NO SOB NOTED, LUNG SOUNDS CLEAR, ON ROOM AIR WITH NO RESP DISTRESS NOTED, IVF INFUSING WELL, PULSES PALPABLE, NO EDEMA NOTED, MILD GENERALIZED WEAKNESS, ABD OBESE AND TENDER TO TOUCH WITH HYPOACTIVE BS, NO BM AT THIS TIME, C/O OF CONSTIPATION, LAXATIVE GIVEN BY DAY SHIFT, UCX (+) WITH E-COLI, ON ABX TREATMENT, DENIES ANY PROBLEM WITH VOIDING, DAUGHTER AT BEDSIDE, NO DISTRESS NOTED, WILL KEEP TO MONITOR.
--- NOTE | 2018-12-09 19:59 | NUR ---
PT HAD LARGE FORMED BM AFTER DULCOLAX SUPP, STATED THAT SHE FEELS BETTER AFTER THE BM.
[2018-12-09 20:43] VITALS: BP 143/81
[2018-12-10 05:52] VITALS: BP 133/73
--- NOTE | 2018-12-10 06:10 | NUR ---
PT AWAKE AND RESTING IN BED, SLEPT MOST OF NIGHT, PT TOTAL HAD 5 TIMES BM AFTER DULCOLAX SUPP, MORNING BLODD SUGAR-107 MG/DL WITH NO RISS, IVF INFUSING WELL, PT STATED SHE FEELS BETTER THIS MORNING, NO DISTRESS NOTED, WILL KEEP TO MONITOR.
[2018-12-10 06:38] LABS: BASOPHIL % 0.4 % (0-2); PLATELET COUNT 178 x10^3mcL (130-400)
[2018-12-10 06:54] LABS: CALCIUM 8.4 mg/dL (8.5-10.1); CARBON DIOXIDE 28.6 mmol/L (21-32); CHLORIDE SERUM 107 mmol/L (98-107); CREATININE SERUM 0.5 mg/dL (0.6-1.0); GFR1 > 60 mL/min; GLUCOSE SERUM 109 mg/dL (74-106); POTASSIUM SERUM 3.9 mmol/L (3.5-5.1); SODIUM SERUM 143 mmol/L (136-145)
--- NOTE | 2018-12-10 07:21 | NUR ---
BEDSIDE HANDOFF REPORT GIVEN TO GIANNI-JOSEPH, ALL QUESTIONS ANSWERED AND CONCERNS ADDRESSED.
--- NOTE | 2018-12-10 07:35 | NUR ---
PATIENT RESTING IN BED, NO ACUTE DISTRESS NOTED AT THIS TIME. PATIENT DENIES PAIN. DENIES SOB, ON ROOM AIR. PATIENT DENIES PAIN, BURNING UPON URINATION. PATIENT IS AMBULATORY, WITH NO ASSISTANCE. NS IV INFUSING TO LAC AT 50ML/HR, NO S/S OF INFILTRATION, CALL LIGHT WITHIN REACH, BED IN LOW POSITION. WILL CONTINUE TO MONITOR FOR CHANGES.
[2018-12-10] MEDS ORDERED: CIPRO500 MG PO (08:34)
[2018-12-10 08:43] VITALS: BP 145/73
[2018-12-10 12:19] VITALS: BP 145/73
--- NOTE | 2018-12-10 12:45 | NUR ---
PATIENT STATED AFTER PASSING A BOWEL MOVEMENT ON 12/09/18 HER ANAL BECAME SWOLLEN AFTER. PATIENT REFUSED PHOTOS. RESEARCH LIBRARIAN HARLEY AWARE AND WILL PRESCRIBE A MEDICATION. WILL FOLLOW UP WITH PRESCRIPTION.
--- NOTE | 2018-12-10 13:20 | NUR ---
PATIENT WAS DISCHARGED HOME, TAKEN DOWN VIA WHEELCHAIR BY LAUNDRY OPERATOR WASH ROOM. PATIENT RECEIVED COPY OF DISCHARGED INSTRUCTIONS, PATIENT UNDERSTANDS AND AGREES WITH D/C POC & INSTRUCTIONS, INCLUDING FOLLOW UP WITH PCP & MEDICATIONS. ALL QUESTIONS AND CONCERNS ADDRESSED. PATIENT TOOK HOME ALL BELONGING. IV TO LAC REMOVED, CATH INTACT. ARMBANDS REMOVED.
== END 2018-12-10 13:16 | disposition home or self-care (01) | DRG 463 ==
LOC: ED 08:31 → MU 12:05
PROVIDERS: Emergency Medicine; ADMIT General Practice
DX: N10 Acute pyelonephritis (principal); B96.29 Other Escherichia coli [E. coli] as the cause of diseases classified elsewhere; E66.9 Obesity, unspecified; R73.03 Prediabetes; R19.7 Diarrhea, unspecified; E86.0 Dehydration; Z68.36 Body mass index [BMI] 36.0-36.9, adult; Z79.84 Long term (current) use of oral hypoglycemic drugs
CPT/HCPCS: 82962; 87046; 87046-59; G0378; J0696; J1885; J2405; J3490; J7030; J7060